=== PATIENT | male | born 1950 | race Caucasian/White ===

== ENCOUNTER 2020-06-24 14:20 | Emergency (ER) | payer OTHER ==
[~2020-06-24] VITALS: Ht 180.3 cm; Wt 108.9 kg
[2020-06-24 14:26] VITALS: BP 136/76
--- NOTE | 2020-06-24 14:29 | NUR ---
patient ambulated to er bed 06
--- NOTE | 2020-06-24 14:29 | NUR ---
PT AMBULATED TO BED 6, STEADY GAIT.
--- NOTE | 2020-06-24 14:37 | NUR ---
Dr. borden at bedside.
--- NOTE | 2020-06-24 15:00 | NUR ---
pt placed on 3 lead ecg and pulse ox.
[2020-06-24] MEDS ORDERED: DEXAMETHASONE 10 MG/ML VIAL IVP ONE (15:15)
[2020-06-24] MEDS ORDERED: NACL 0.9% 500 ML IV ONE (15:15)
--- NOTE | 2020-06-24 15:24 | NUR ---
69 y/m presents to ed c c/o generalized weakness and chills x 2 days. Pt also reporting SOB, denies cough. Pt seen at [place] yesterday, and dc home. Pt also reports body aches, low grade temp 99.4. Per daughter pt also had a change in steroid medications on 06/13. Pt was previously taking prednisone and now switched to dexamethasone. Pt a & o x 4, rr even and unlabored, lungs clear, Abd rounded and large, bs active x 4. medhx: addisons disease, stent, COPD, Crohns
--- NOTE | 2020-06-24 15:28 | NUR ---
lab at bedside.
--- NOTE | 2020-06-24 15:28 | NUR ---
Transfer of care at this time to [facility].
[2020-06-24 15:48] LABS: BASOPHILS % (AUTO) 0.4 % (0.0-2.0); EOSINOPHILS # (AUTO) 0.3 K/uL (0-0.4); EOSINOPHILS % (AUTO) 3.8 % (0.0-4.0); HEMOGLOBIN 14.5 g/dL (12.0-18.0); LYMPHOCYTES % (AUTO) 15.1 % (20.5-51.1); MEAN CORPUSCULAR HEMOGLOBIN 31 pg (27-31); MEAN CORPUSCULAR HGB CONC 34 g/dL (33-37); MONOCYTES # (AUTO) 0.5 K/uL (0.8-1.0); MONOCYTES % (AUTO) 7.9 % (1.7-9.3); NEUTROPHILS # (AUTO) 4.9 K/uL (1.8-7.7); NEUTROPHILS % (AUTO) 72.8 % (42.2-75.2); PLATELET COUNT (AUTO) 154 K/uL (140-450); RED BLOOD CELL COUNT(AUTO) 4.73 MIL/uL (4.20-6.10); RED CELL DISTRIBUTION WIDTH 14.7 % (11.6-13.7); WHITE BLOOD COUNT (AUTO) 6.7 K/uL (4.8-10.8)
--- NOTE | 2020-06-24 15:52 | NUR ---
Pt states he is unable to give urine at this time. Will check with patient later
--- NOTE | 2020-06-24 16:00 | NUR ---
Influenza and covid swab collected from patient and given to salvage laborer
[2020-06-24 16:07] LABS: PROTHROMBIN TIME 10.5 secs (10.8-13.4)
[2020-06-24 16:08] LABS: ALBUMIN 3.1 g/dL (3.4-5.0); ANION GAP 15.1 (8-16); CARBON DIOXIDE 27.7 mmol/L (21-32); CREATININE 1.2 mg/dL (0.6-1.3); POTASSIUM 3.8 mmol/L (3.5-5.1); TOTAL BILIRUBIN 0.7 mg/dL (0.0-1.0)
--- NOTE | 2020-06-24 16:37 | NUR ---
Dr Schneider at bedside re-evaluating patient
[2020-06-24 16:46] LABS: APPEARANCE,URINE HAZY (CLEAR); BILIRUBIN,URINE NEGATIVE (NEGATIVE); BLOOD, URINE NEGATIVE (NEGATIVE); COLOR,URINE YELLOW (YELLOW); LEUKOCYTE ESTERASE ,URINE NEGATIVE (NEGATIVE); NITRITE, URINE NEGATIVE (NEGATIVE); PH,URINE 5.5 (5.0-9.0); UGLUCOSE NEGATIVE (NEGATIVE)
[2020-06-24 17:08] VITALS: BP 131/74
--- NOTE | 2020-06-24 17:08 | NUR ---
IV discontinued, 2x2 gauze placed to IV site, bleeding controlled
--- NOTE | 2020-06-24 17:09 | NUR ---
Patient discharged with v/s stable. Written and verbal after care instructions given and explained. Patient verbalized understanding. Ambulatory with steady gait. All questions addressed prior to discharge. Advised to follow up with PMD.
--- NOTE | 2020-06-28 00:50 | NUR ---
late entry---- s/w primary nurse, as follows; NS end time: [id number]
== END 2020-06-24 17:09 | disposition home or self-care (01) ==
LOC: MED 14:20
DX: R53.1 Weakness (principal); R53.83 Other fatigue; E27.1 Primary adrenocortical insufficiency; I51.89 Other ill-defined heart diseases; J44.9 Chronic obstructive pulmonary disease, unspecified; Z95.0 Presence of cardiac pacemaker; Z95.5 Presence of coronary angioplasty implant and graft; Z87.19 Personal history of other diseases of the digestive system; Z20.828 Contact with and (suspected) exposure to other viral communicable diseases
CPT/HCPCS: 36415; 71045; 80053; 81003; 83605; 83880; 84484; 85025; 85610; 85730; 87040; 87086; 87426; 87804; 93005; 96361; 96374; 99285; J1100; J7030; U0003

== ENCOUNTER 2022-09-05 21:47 | Emergency (ER) | payer OTHER ==
[~2022-09-05] VITALS: Ht 177.8 cm; Wt 95.7 kg
[2022-09-05 21:55] VITALS: BP 141/65
--- NOTE | 2022-09-05 21:55 | NUR ---
PT [facility]. TAKEN TO BED 8
--- NOTE | 2022-09-05 22:11 | NUR ---
Patient resting in bed, A/Ox4, chest rise and fall symmetrical, no s/s of distress
--- NOTE | 2022-09-05 22:19 | NUR ---
Dr. Christensen examining patient.
[2022-09-05] MEDS ORDERED: NACL 0.9% 1,000 ML IV ONE (22:20)
[2022-09-05] MEDS ORDERED: MORPHINE SULFATE 4 MG/ML SYR IVP ONE (22:20)
[2022-09-05] MEDS ORDERED: MORPHINE SULFATE 4 MG/ML SYR IM ONE (23:05)
[2022-09-05 23:27] LABS: BASOPHILS # (AUTO) 0.1 K/uL (0.00-0.22); BASOPHILS % (AUTO) 0.9 % (0.0-2.0); EOSINOPHILS # (AUTO) 0.6 K/uL (0-0.4); EOSINOPHILS % (AUTO) 3.8 % (0.0-4.0); HEMATOCRIT 36.2 % (36-52); HEMOGLOBIN 11.8 g/dL (12.0-18.0); LYMPHOCYTES # (AUTO) 1.9 K/uL (2.0-11.5); LYMPHOCYTES % (AUTO) 12.9 % (20.5-51.1); MEAN CORPUSCULAR HEMOGLOBIN 29 pg (27-31); MEAN CORPUSCULAR HGB CONC 33 g/dL (33-37); MEAN CORPUSCULAR VOLUME 88.2 fL (80-94); MONOCYTES % (AUTO) 6.8 % (1.7-9.3); NEUTROPHILS # (AUTO) 11.4 K/uL (1.8-7.7); NEUTROPHILS % (AUTO) 75.6 % (42.2-75.2); PLATELET COUNT (AUTO) 233 K/uL (140-450); RED BLOOD CELL COUNT(AUTO) 4.11 MIL/uL (4.20-6.10); RED CELL DISTRIBUTION WIDTH 15.1 % (11.6-13.7); WHITE BLOOD COUNT (AUTO) 15.1 K/uL (4.8-10.8)
--- NOTE | 2022-09-05 23:30 | NUR ---
Patient resting in bed, A/Ox4, chest rise and fall symmetrical, no s/s of distress
--- NOTE | 2022-09-05 23:36 | NUR ---
X-Ray at bedside.
[2022-09-05 23:43] LABS: PROTHROMBIN TIME 11.1 secs (10.8-13.4)
[2022-09-05 23:46] LABS: ALBUMIN 3.4 g/dL (3.4-5.0); ANION GAP 13.2 (8-16); ASPARTATE AMINOTRANSFERASE 21 U/L (15-37); CARBON DIOXIDE 29.4 mmol/L (21-32); CHLORIDE 103 mmol/L (98-107); CREATININE 1.2 mg/dL (0.6-1.3); GLUCOSE 94 mg/dL (74-106); POTASSIUM 3.6 mmol/L (3.5-5.1); SODIUM SERUM 142 mmol/L (136-145); TOTAL BILIRUBIN 0.7 mg/dL (0.0-1.0); UREA NITROGEN, BLOOD 17 mg/dL (7-18)
--- NOTE | 2022-09-06 01:05 | NUR ---
Dr. Christensen examining patient.
--- NOTE | 2022-09-06 01:21 | NUR ---
Patient resting in bed, A/Ox4, chest rise and fall symmetrical, no s/s of distress
--- NOTE | 2022-09-06 03:10 | NUR ---
tient resting in bed, A/Ox4, chest rise and fall symmetrical, no s/s of distress
[2022-09-06 03:43] LABS: APPEARANCE,SPUN,BODY FLUID CLEAR (CLEAR); APPEARANCE,UNSPUN,BODY FLUID HAZY (CLEAR); COLOR,BODY FLUID PINK (LT YELLOW); SPECIMENTYPE,BODY FLUID KNEE FLUID
[2022-09-06 03:44] LABS: GLUCOSE,BODY FLUID 97 mg/dL; RBC, BODY FLUID 1000 /cu. mm.; TOTAL VOLUME,BODY FLUID 5 mL; WBC, BODY FLUID 0 /cu. mm.
[2022-09-06] MEDS ORDERED: HYDROcodone/APAP 5/325 MG 1 TAB TAB PO ONE (04:15)
[2022-09-06] MEDS ORDERED: ACET-9525 PO (04:17)
[2022-09-06 04:30] VITALS: BP 103/62
--- NOTE | 2022-09-06 04:32 | NUR ---
tient resting in bed, A/Ox4, chest rise and fall symmetrical, no s/s of distress
--- NOTE | 2022-09-06 04:45 | NUR ---
Patient discharged with v/s stable. Written and verbal after care instructions given and explained. Patient alert, oriented and verbalized understanding of instructions. Wheel Chair Assisted with to car. All questions addressed prior to discharge. ID band removed. Patient advised to follow up with PMD. Rx given to patient. Patient educated on indication of medication including possible reaction and side effects. Opportunity to ask questions provided and answered.
== END 2022-09-06 04:45 | disposition home or self-care (01) ==
LOC: MED 21:47
DX: M25.562 Pain in left knee (principal); R50.9 Fever, unspecified; J44.9 Chronic obstructive pulmonary disease, unspecified; E11.9 Type 2 diabetes mellitus without complications; Z79.899 Other long term (current) drug therapy; Z95.0 Presence of cardiac pacemaker
CPT/HCPCS: 20611; 36415; 73562; 80053; 82945; 83605; 84157; 84550; 85025; 85610; 85651; 86140; 87040; 87070; 87205; 89051; 96360; 96372; 99285; J2270; J7030; Q0092